=== PATIENT | male | born 1935 | race Caucasian/White ===

== ENCOUNTER 2017-04-01 08:30 | Day surgery (SDC) | payer MEDICARE, BC ==
[~2017-04-01] VITALS: Ht 177.8 cm; Wt 95.3 kg
[2017-05-12] MEDS ORDERED: LASIX DPS80 MG PO (17:00)
[2017-05-12] MEDS ORDERED: ALDACTONE DPS25 MG PO (17:00)
[2017-05-12] MEDS ORDERED: CELEXA40 MG PO (17:00)
[2017-05-12] MEDS ORDERED: ATORVASTATIN CA40 MG PO (17:01)
[2017-05-12] MEDS ORDERED: THERA1 EACH PO (17:01)
[2017-05-12] MEDS ORDERED: NOVOLIN 70100 UNITS/ SQ ×2 (17:01)
[2017-05-12] MEDS ORDERED: COLACE-DPS100 MG PO (17:02)
[2017-05-12] MEDS ORDERED: CYCLOSPORINE PO (17:02)
[2017-05-12] MEDS ORDERED: DELTASONE DPS10 MG PO ×3 (17:03→17:05)
[2017-05-12] MEDS ORDERED: TYLENOL EXTRA500 M1 PO (17:06)
== END 2017-04-01 12:56 | disposition home or self-care (01) ==
LOC: RAD.S 08:30
PROC: 07DR3ZX Extraction of Iliac Bone Marrow, Percutaneous Approach, Diagnostic (ICD-10-PCS; principal; 2017-04-01)
DX: D46.9 Myelodysplastic syndrome, unspecified (principal); I10 Essential (primary) hypertension; Z79.899 Other long term (current) drug therapy; Z79.52 Long term (current) use of systemic steroids